=== PATIENT | female | born 1995 ===

== ENCOUNTER 2022-05-22 12:57 | Emergency (ER) | payer SELFPAY ==
[~2022-05-22] VITALS: Ht 167.6 cm; Wt 64.0 kg
[2022-05-22 13:01] VITALS: BP 129/90
[2022-05-22] MEDS ORDERED: KETOROLAC 30MG/ML VIAL IV STA (13:02)
[2022-05-22] MEDS ORDERED: ONDANSETRON HCL 4MG/2ML INJ IV STA (13:02)
[2022-05-22] MEDS ORDERED: SODIUM CHLORIDE 0.9% 1,000 ML IV ONE (13:15)
[2022-05-22 14:18] LABS: BASOPHILS % 0.2 % (0.0-2.0); HEMATOCRIT. 45.5 % (36.0-48.0); HEMOGLOBIN. 14.9 g/dL (12.0-16.0); LYMPHOCYTES % 10.5 % (20.0-50.0); MEAN CORPUSCULAR HEMOGLOBIN 31.4 pg (28.0-32.0); MEAN CORPUSCULAR VOLUME 95.8 fL (81.0-99.0); MEAN PLATELET VOLUME 8.8 fl (7.4-10.4); MONOCYTES % 5.9 % (2.0-8.0); NEUTROPHILS % 83.4 % (40.0-76.0); PLATELET 243 x1000/uL (130-400); RED BLOOD CELL COUNT 4.75 mill/uL (4.2-5.4); RED CELL DISTRIBUTION WIDTH 14.2 % (11.6-14.6)
[2022-05-22 14:27] LABS: CHLORIDE 110 mEq/L (98-107)
[2022-05-22 14:37] LABS: ETHANOL BLOOD < 10 mg/dL
[2022-05-22 14:56] LABS: HCG SCREEN NEGATIVE
[2022-05-22] MEDS ORDERED: VISCOUS LIDOCAINE 2% 15 ML UDC PO STA (17:40)
[2022-05-22] MEDS ORDERED: MAGNESIUM/ALUMINUM HYDROXIDE/SIMETHICONE 30ML UDC PO STA (17:40)
[2022-05-22] MEDS ORDERED: DICYCLOMINE 10 MG/5 ML ORAL SYR PO STA (17:40)
[2022-05-22] MEDS ORDERED: ONDA4TAB50 MT (17:42)
[2022-05-22] MEDS ORDERED: OMEP40CA20 MT (17:42)
== END 2022-05-22 18:53 | disposition home or self-care (01) ==
LOC: ER 12:57
DX: R10.9 Unspecified abdominal pain (principal)
CPT/HCPCS: 36415; 74176; 80053; 80320; 83690; 84703; 85025; 96361; 96374; 96375; 99284; J1885; J2405; J7030; G0480